=== PATIENT | female | born 1995 | race Caucasian/White ===

== ENCOUNTER → 2016-09-10 | Outpatient (CLI) | payer BC, MEDICAID | LOC: MW.CHOBGYN 08:33 | PROVIDERS: ATTEND Obstetrics & Gynecology | DX: Z34.90 Encounter for supervision of normal pregnancy, unspecified, unspecified trimester (principal) | CPT/HCPCS: 81003 ==

== ENCOUNTER → 2016-09-24 | Outpatient (CLI) | payer BC, MEDICAID | LOC: MW.CHOBGYN 09:23 | PROVIDERS: ATTEND Obstetrics & Gynecology | DX: Z34.90 Encounter for supervision of normal pregnancy, unspecified, unspecified trimester (principal) | CPT/HCPCS: 87081 ==

== ENCOUNTER → 2016-10-28 | Outpatient (CLI) | payer BC, MEDICAID | LOC: MW.CHOBGYN 10:48 | PROVIDERS: ATTEND Obstetrics & Gynecology | DX: Z34.90 Encounter for supervision of normal pregnancy, unspecified, unspecified trimester (principal) | CPT/HCPCS: 81003 ==

== ENCOUNTER 2016-10-31 00:09 | Inpatient (IN) | payer BC, MEDICAID ==
[2016-10-31] MEDS ORDERED: Butorphanol 1 MG/ML SDV IVPUSH PRN (00:25)
[2016-10-31] MEDS ORDERED: Misoprostol 200 MCG Tab PO PRN (00:25)
[2016-10-31] MEDS ORDERED: Terbutaline 1 MG/ML SDV SUBCUT PRN (00:25)
[2016-10-31] MEDS ORDERED: Carboprost Tromethamine 250 MCG/1 ML Amp IM PRN (00:25)
[2016-10-31] MEDS ORDERED: Water For Irrigation,Sterile 1,000 ML Container IRR PRN (00:25)
[2016-10-31] MEDS ORDERED: Methylergonovine 0.2 MG/1 ML Amp IM PRN (00:25)
[2016-10-31] MEDS ORDERED: Sodium Chloride 0.9% 10 ML Syringe FLUSH PRN (00:25)
[2016-10-31] MEDS ORDERED: Sodium Chloride 0.9% 2.5 ML Syringe FLUSH PRN (00:25)
[2016-10-31] MEDS ORDERED: Nalbuphine 10 MG/1 ML Vial IVPUSH PRN (00:25)
[2016-10-31] MEDS ORDERED: Lidocaine 1% 50 ML MDV INJECT PRN (00:25)
[2016-10-31] MEDS ORDERED: Oxytocin/Lactated Ringers 30 UNIT/500 ML BAG IV SCH ×3 (00:30→06:00)
[2016-10-31] MEDS ORDERED: Misoprostol 25 MCG (1/4 of 100 MCG) Tab PO SCH (00:45)
[2016-10-31] MEDS ORDERED: Misoprostol 25 MCG (1/4 of 100 MCG) Tab VAG SCH (00:45)
[2016-10-31] MEDS ORDERED: Acetaminophen 500 MG Tab PO ONE (01:47)
[2016-10-31] MEDS ORDERED: Misoprostol 25 MCG (1/4 of 100 MCG) Tab VAG PRN (05:30)
[2016-10-31] MEDS ORDERED: Misoprostol 25 MCG (1/4 of 100 MCG) Tab PO PRN (05:30)
--- NOTE | 2016-10-31 07:40 | PCM.LDHP ---
L&D History of Present Illness - General Date of Service: 10/31/16 Admit Problem/Dx: Patient Status Order with Admit Dx/Problem 10/31/16 00:25 Patient Status [ADT] Routine Admission Diagnosis/Problem Admission Diagnosis/Problem 10/31/16 07:35 21 yo for IOL due to post dates. EDC 10/26/2016 40 5/7 wks, O+, RI, GBS neg. Source of Information: Patient History Limitations: Reports: No limitations - History of Present Illness Improves with: Reports: None Worsens with: Reports: None Associated Symptoms: Reports: N - Related Data Allergies/Adverse Reactions: Allergies Allergy/AdvReac Type Severity Reaction Status Date / Time No Known Allergies Allergy Verified 10/31/16 00:24 Past Medical History - Past Health History Medical/Surgical History: Denies Medical/Surgical History Social & Family History - Family History Cardiac: Reports: None GI: Reports: Other (see below) Other GI Family History: Grandmother had gastric by-pass Endocrine/Metabolic: Reports: Diabetes, type II, Obesity/MBI 30+ Oncologic: Reports: Prostate - Tobacco Use Smoking Status *Q: Current Every Day Smoker Years of Tobacco use: 7 Packs/Tins Daily: 2 Second Hand Smoke Exposure: Yes - Caffeine Use Caffeine Use: Reports: Soda - Recreational Drug Use Recreational Drug Use: Yes Drug Use in Last 12 Months: Yes Recreational Drug Type: Reports: Marijuana/Hashish Other Recreational Drug Type: Use to use it daily but started cutting back until now she hasn't used it for about 3 months Recreational Drug Use Frequency: Not Used In Over 2 Months H&P Review of Systems - Review of Systems: Review Of Systems: See Below General: Reports: no symptoms HEENT: Reports: no symptoms Pulmonary: Reports: No Symptoms Cardiovascular: Reports: no symptoms Gastrointestinal: Reports: No symptoms Genitourinary: Reports: no symptoms Musculoskeletal: Reports: no symptoms Skin: Reports: no symptoms Psychiatric: Reports: no symptoms Neurological: Reports: No Symptoms Hematologic/Lymphatic: Reports: no symptoms Immunologic: Reports: no symptoms L&D Exam - Exam Exam: See Below - Vital Signs Vital Signs: Last Vital Signs Temp 37.6 C 10/31/16 02:00 Pulse Resp BP Pulse Ox Weight: 122.47 kg - Exam General: alert, oriented, cooperative HEENT: Hearing intact Lungs: Normal respiratory effort Abdomen: soft (gravid) Rectal Exam: Deferred Back Exam: full range of motion Extremities: normal inspection Skin: warm, dry, intact Neurological: cranial nerves intact Psychiatric: alert, normal affect, normal mood - Patient Data Lab Results last 24 hrs: Laboratory Results - last 24 hr 10/31/16 10/31/16 Range/Units 00:40 00:40 WBC 12.30 H (4.0-11.0) K/uL RBC 4.40 (4.30-5.90) M/uL Hgb 13.4 (12.0-16.0) g/dL Hct 39.3 (36.0-46.0) % MCV 89.3 (80.0-98.0) fL MCH 30.5 (27.0-32.0) pg MCHC 34.1 (31.0-37.0) g/dL RDW Std Deviation 43.7 (28.0-62.0) fl RDW Coeff of Kavon 13 (11.0-15.0) % Plt Count 234 (150-400) K/uL MPV 9.50 (7.40-12.00) fL Nucleated RBC % 0.0 /100WBC Nucleated RBCs # 0 K/uL Blood Type O POSITIVE Antibody Screen NEGATIVE Result Diagrams: 10/31/16 00:40 - Problem List (1) Supervision of normal IUP (intrauterine ) in primigravida SNOMED Code(s): 78459669, 860318516, 601439943, 554076535 ICD Code: Z34.00 - ENCNTR FOR SUPRVSN OF NORMAL FIRST , UNSP TRIMESTER Status: Acute Priority: High Current Visit: Yes Qualifiers: Trimester: third trimester Qualified Code(s): Z34.03 - Encounter for supervision of normal first , third trimester Problem List Initiated/Reviewed/Updated: Yes Orders Last 24hrs: Active Orders 24 hr Category Date Time Status Patient Status [ADT] Routine ADT 10/31/16 00:25 Active Bedrest Bathroom Privileges [RC] ASDIRECTED Care 10/31/16 00:25 Active Communication Order [RC] ASDIRECTED Care 10/31/16 00:25 Active Communication Order [RC] ASDIRECTED Care 10/31/16 00:25 Active Communication Order [RC] ASDIRECTED Care 10/31/16 00:25 Active Heart Tones [RC] CONTINUOUS Care 10/31/16 00:25 Active Non Stress Test [RC] PER UNIT ROUTINE Care 10/31/16 00:25 Active May Shower [RC] ASDIRECTED Care 10/31/16 00:25 Active Notify Provider [RC] PRN Care 10/31/16 00:25 Active Notify Provider [RC] PRN Care 10/31/16 00:25 Active Notify Provider [RC] PRN Care 10/31/16 00:25 Active Notify Provider [RC] STAT Care 10/31/16 00:25 Active Oxygen Therapy [RC] ASDIRECTED Care 10/31/16 00:25 Active Up ad Janine [RC] ASDIRECTED Care 10/31/16 00:25 Active Vaginal Exam [RC] PRN Care 10/31/16 00:25 Active Vaginal Exam [RC] PRN Care 10/31/16 00:25 Active Vital Signs [RC] PER UNIT ROUTINE Care 10/31/16 00:25 Active Vital Signs [RC] PER UNIT ROUTINE Care 10/31/16 00:25 Active Clear Liquid Diet [DIET] Diet 10/31/16 Breakfast Active Butorphanol [Stadol] Med 10/31/16 00:25 Active 1 mg IVPUSH ASDIRECTED PRN Carboprost Tromethamine [Hemabate DS] Med 10/31/16 00:25 Active 250 mcg IM ASDIRECTED PRN Lactated Ringers [Ringers, Lactated] 1,000 ml Med 10/31/16 00:30 Active IV ASDIRECTED Lidocaine 1% [Xylocaine 1%] Med 10/31/16 00:25 Active 50 ml INJECT .ONCE PRN Methylergonovine [Methergine] Med 10/31/16 00:25 Active 0.2 mg IM ASDIRECTED PRN Misoprostol [Cytotec] Med 10/31/16 00:25 Active 200 mcg PO .ONCE PRN Misoprostol [Cytotec] Med 10/31/16 00:45 Active 25 mcg PO .ONCE Misoprostol [Cytotec] Med 10/31/16 05:30 Active 25 mcg PO Q4H PRN Misoprostol [Cytotec] Med 10/31/16 00:45 Active 25 mcg VAG .ONCE Misoprostol [Cytotec] Med 10/31/16 05:30 Active 25 mcg VAG Q4H PRN Nalbuphine [Nubain] Med 10/31/16 00:25 Active 10 mg IVPUSH ASDIRECTED PRN Oxytocin/Lactated Ringers [Pitocin in LR 30 Units/500 Med 10/31/16 03:00 Active ML] 30 unit in 500 ml IV TITRATE Sodium Chloride 0.9% [Saline Flush] Med 10/31/16 00:25 Active 10 ml FLUSH ASDIRECTED PRN Sodium Chloride 0.9% [Saline Flush] Med 10/31/16 00:25 Active 2.5 ml FLUSH ASDIRECTED PRN Terbutaline [Brethine] Med 10/31/16 00:25 Active 0.25 mg SUBCUT ASDIRECTED PRN Water For Irrigation,Sterile [Sterile Water for Med 10/31/16 00:25 Active Irrigation] 1,000 ml IRR ASDIRECTED PRN Scalp Electrode [WOMSER] Per Unit Routine Oth 10/31/16 00:25 Ordered Medication Administration Instruction [OM.PC] Q3H Oth 10/31/16 00:30 Ordered Peripheral IV Insertion Adult [OM.PC] Routine Oth 10/31/16 00:25 Ordered Resuscitation Status Routine Resus Stat 10/31/16 00:25 Ordered Medication Orders Butorphanol Tartrate (Stadol) 1 mg IVPUSH ASDIRECTED PRN PRN Reason: Pain Stop: 11/01/16 00:26 Carboprost Tromethamine (Hemabate Ds) 250 mcg IM ASDIRECTED PRN PRN Reason: Post Hemorrhage Lactated Ringer's (Ringers, Lactated) 1,000 mls @ 150 mls/hr IV ASDIRECTED MARCUS Oxytocin/Lactated Ringer's (Pitocin In Lr 30 Units/500 Ml) 30 unit in 500 mls @ 2 mls/hr IV TITRATE MARCUS; 2 MUNITS/MIN PRN Reason: Protocol Last Titration: 10/31/16 03:53 Dose: 4 munits/min, 4 mls/hr Admin: 10/31/16 03:00 Dose: 2 munits/min, 2 mls/hr Lidocaine HCl (Xylocaine 1%) 50 ml INJECT .ONCE PRN PRN Reason: Laceration repair Methylergonovine Maleate (Methergine) 0.2 mg IM ASDIRECTED PRN PRN Reason: Post Hemorrhage Misoprostol (Cytotec) 200 mcg PO .ONCE PRN PRN Reason: Post Hemorrhage Misoprostol (Cytotec) 25 mcg VAG .ONCE MARCUS Misoprostol (Cytotec) 25 mcg VAG Q4H PRN PRN Reason: Cervical Ripening Stop: 11/01/16 09:31 Misoprostol (Cytotec) 25 mcg PO .ONCE MARCUS Misoprostol (Cytotec) 25 mcg PO Q4H PRN PRN Reason: Cervical Ripening Stop: 11/01/16 09:31 Nalbuphine HCl (Nubain) 10 mg IVPUSH ASDIRECTED PRN PRN Reason: Pain (severe 7-10) Stop: 11/02/16 00:26 Sodium Chloride (Saline Flush) 10 ml FLUSH ASDIRECTED PRN PRN Reason: Keep Vein Open Sodium Chloride (Saline Flush) 2.5 ml FLUSH ASDIRECTED PRN PRN Reason: Keep Vein Open Sterile Water (Sterile Water For Irrigation) 1,000 ml IRR ASDIRECTED PRN PRN Reason: delivery Terbutaline Sulfate (Brethine) 0.25 mg SUBCUT ASDIRECTED PRN PRN Reason: Tacysystole Assessment/Plan Comment:: IOL A: 21 yo for IOL due to post dates. EDC 10/26/2016 40 5/7 wks, O+, RI, GBS neg. P: Admitted to L&D for IOL, GBS neg, pitocin low dose 4ml for cervical ripening due to tachycardia of ., epidural prn. Anticipate
[2016-10-31] MEDS: Lactated Ringers 1,000 ML IV SCH ×2 (09:54→10:36)
--- NOTE | 2016-10-31 10:28 | PCM.PREANE ---
Preanesthetic Assessment - Anesthesia/Transfusion/Family Hx Anesthesia History: No Prior Anesthesia - Review of Systems General: No Symptoms Pulmonary: No Symptoms Cardiovascular: No Symptoms Gastrointestinal: No symptoms Neurological: No Symptoms Other: Reports: None - Physical Assessment Pulse: 86 O2 Sat by Pulse Oximetry: 99 Respiratory Rate: 20 Temperature: 99.6 F Vital Signs: Last Vital Signs Temp 99.6 F 10/31/16 02:00 Pulse Resp BP Pulse Ox Height: 5 ft 4 in Weight: 122.47 kg ASA Class: 3 Mental Status: Alert & Oriented x3 Airway Class: Mallampati = 2 Dentition: Reports: Normal Dentition Thyro-Mental Finger Breadths: 3 Mouth Opening Finger Breadths: 3 ROM/Head Extension: Full Lungs: Clear to auscultation, Normal respiratory effort Cardiovascular: Regular Rate, Regular Rhythm - Lab Values: Laboratory Last Values WBC 12.30 K/uL (4.0-11.0) H 10/31/16 00:40 RBC 4.40 M/uL (4.30-5.90) 10/31/16 00:40 Hgb 13.4 g/dL (12.0-16.0) 10/31/16 00:40 Hct 39.3 % (36.0-46.0) 10/31/16 00:40 MCV 89.3 fL (80.0-98.0) 10/31/16 00:40 MCH 30.5 pg (27.0-32.0) 10/31/16 00:40 MCHC 34.1 g/dL (31.0-37.0) 10/31/16 00:40 RDW Std Deviation 43.7 fl (28.0-62.0) 10/31/16 00:40 RDW Coeff of Kavon 13 % (11.0-15.0) 10/31/16 00:40 Plt Count 234 K/uL (150-400) 10/31/16 00:40 MPV 9.50 fL (7.40-12.00) 10/31/16 00:40 Nucleated RBC % 0.0 /100WBC 10/31/16 00:40 Nucleated RBCs # 0 K/uL 10/31/16 00:40 Blood Type O POSITIVE 10/31/16 00:40 Antibody Screen NEGATIVE 10/31/16 00:40 - Allergies Allergies/Adverse Reactions: Allergies Allergy/AdvReac Type Severity Reaction Status Date / Time No Known Allergies Allergy Verified 10/31/16 00:24 - Acknowledgements Anesthesia Type Planned: Epidural Pt an Appropriate Candidate for the Planned Anesthesia: Yes Alternatives and Risks of Anesthesia Discussed w Pt/Guardian: Yes Pt/Guardian Understands and Agrees with Anesthesia Plan: Yes PreAnesthesia Questionnaire - Past Health History Medical/Surgical History: Denies Medical/Surgical History HEENT History: Reports: None Cardiovascular History: Reports: None Respiratory History: Reports: None Gastrointestinal History: Reports: GERD Genitourinary History: Reports: None [employer] History: Reports: : 1 Para: 0 LMP (Approximate): Musculoskeletal History: Reports: None Neurological History: Reports: None Psychiatric History: Reports: None Endocrine/Metabolic History: Reports: Obesity/BMI 30+ (Morbid obesity) Hematologic History: Reports: None Immunologic History: Reports: None Oncologic (Cancer) History: Reports: None Dermatologic History: Reports: None - Infectious Disease History Infectious Disease History: Reports: None - SUBSTANCE USE Smoking Status *Q: Current Every Day Smoker Tobacco Use Within Last Twelve Months: Cigarettes Second Hand Smoke Exposure: Yes Recreational Drug Use History: Yes Recreational Drug Type: Reports: Marijuana/Hashish - CURRENT (IN HOUSE) MEDS Current Meds: Current Medications Butorphanol Tartrate (Stadol) 1 mg IVPUSH ASDIRECTED PRN PRN Reason: Pain Stop: 11/01/16 00:26 Last Admin: 10/31/16 08:47 Dose: 1 mg Carboprost Tromethamine (Hemabate Ds) 250 mcg IM ASDIRECTED PRN PRN Reason: Post Hemorrhage Lactated Ringer's (Ringers, Lactated) 1,000 mls @ 150 mls/hr IV ASDIRECTED MARCUS Last Admin: 10/31/16 09:54 Dose: 999 mls/hr Oxytocin/Lactated Ringer's (Pitocin In Lr 30 Units/500 Ml) 30 unit in 500 mls @ 2 mls/hr IV TITRATE MARCUS; 2 MUNITS/MIN PRN Reason: Protocol Last Titration: 10/31/16 03:53 Dose: 4 munits/min, 4 mls/hr Lidocaine HCl (Xylocaine 1%) 50 ml INJECT .ONCE PRN PRN Reason: Laceration repair Methylergonovine Maleate (Methergine) 0.2 mg IM ASDIRECTED PRN PRN Reason: Post Hemorrhage Misoprostol (Cytotec) 200 mcg PO .ONCE PRN PRN Reason: Post Hemorrhage Misoprostol (Cytotec) 25 mcg VAG .ONCE MARCUS Misoprostol (Cytotec) 25 mcg VAG Q4H PRN PRN Reason: Cervical Ripening Stop: 11/01/16 09:31 Misoprostol (Cytotec) 25 mcg PO .ONCE MARCUS Misoprostol (Cytotec) 25 mcg PO Q4H PRN PRN Reason: Cervical Ripening Stop: 11/01/16 09:31 Nalbuphine HCl (Nubain) 10 mg IVPUSH ASDIRECTED PRN PRN Reason: Pain (severe 7-10) Stop: 11/02/16 00:26 Sodium Chloride (Saline Flush) 10 ml FLUSH ASDIRECTED PRN PRN Reason: Keep Vein Open Sodium Chloride (Saline Flush) 2.5 ml FLUSH ASDIRECTED PRN PRN Reason: Keep Vein Open Sterile Water (Sterile Water For Irrigation) 1,000 ml IRR ASDIRECTED PRN PRN Reason: delivery Terbutaline Sulfate (Brethine) 0.25 mg SUBCUT ASDIRECTED PRN PRN Reason: Tacysystole Discontinued Medications Acetaminophen (Tylenol Extra Strength) 1,000 mg PO ONETIME ONE Stop: 10/31/16 01:48 Last Admin: 10/31/16 02:00 Dose: 1,000 mg Oxytocin/Lactated Ringer's (Pitocin In Lr 30 Units/500 Ml) 30 unit in 500 mls @ 500 mls/hr IV TITRATE MARCUS PRN Reason: 500 MUNITS/MIN Stop: 10/31/16 01:29 Oxytocin/Lactated Ringer's (Pitocin In Lr 30 Units/500 Ml) 30 unit in 500 mls @ 2 mls/hr IV TITRATE MARCUS; 2 MUNITS/MIN PRN Reason: Protocol
[2016-10-31] MEDS ORDERED: Ropivacaine HCl/PF 100 ML ONE (10:30)
[2016-10-31] MEDS ORDERED: fentaNYL 100 MCG/2 ML SDV ONE (10:30)
[2016-10-31] MEDS ORDERED: Ibuprofen 400 MG Tab PO PRN (14:20)
[2016-10-31] MEDS ORDERED: Acetaminophen 500 MG Tab PO PRN (14:20)
[2016-10-31] MEDS ORDERED: Witch Hazel Medicated Pads 40/Jar TOP PRN (14:20)
[2016-10-31] MEDS ORDERED: Ibuprofen 800 MG Tab PO PRN (14:20)
[2016-10-31] MEDS ORDERED: Lanolin 100% Cream 7 GM Tube TOP PRN (14:20)
[2016-10-31] MEDS ORDERED: Docusate Sodium 100 MG Cap PO PRN (14:20)
[2016-10-31] MEDS ORDERED: Bisacodyl 10 MG Supp RECTAL PRN (14:20)
[2016-10-31] MEDS ORDERED: oxyCODONE 5 MG Tab PO PRN (14:20)
[2016-10-31] MEDS ORDERED: Benzocaine/Menthol 20%-0.5% Spray 78 GM Cannister TOP PRN (14:20)
--- NOTE | 2016-10-31 16:32 | OR ---
SURGEON: Ric Garibay MD DATE OF PROCEDURE: DELIVERY NOTE: Ms. Skaggs is 21-year-old, primigravida. She is term. She is followed in the office primarily by me. She is admitted in active labor. At the time of the admission, she was 3 to 4 cm, complete vertex. She had an artificial rupture of the membrane by the salad bar clerk and it was a clear fluid. The patient required small dose of Pitocin, however, the heart rate was between category 1 and category 2 and she did not tolerate the Pitocin, so we discontinued the Pitocin. The patient continued to progress. She became complete, complete 0 to +1, and she had a deep decelerations. I was called to assess the patient. The patient was complete, complete vertex, and 0 to +1. She was in LOT position. I felt that the patient is vacuumable and my estimated weight for the baby is under 8 pounds, so I used a Kiwi forceps, and while the patient pushing and grunting we gently guided the fetus head is down and it is rotated to the OA position and then she was able to deliver vaginally without any problem. score reported to be 8 and 9 and the weight [address] Benjamin, the rehabilitation counsellor has attended the delivery. I had to do a midline episiotomy to aid in the delivery of this child. The placenta delivered spontaneous, complete, and intact without any problem and then the episiotomy was repaired with 3-0 Vicryl and the layer without any problem. Estimated blood loss is 350 mL to 400 mL. During this there was no complication. CHAR / MARIXA /[id number]
--- NOTE | 2016-10-31 19:30 | PCM48HPAN ---
Post Anesthesia Note - EVALUATION WITHIN 48HRS OF ANESTHETIC Vital Signs in Normal Range: Yes Patient Participated in Evaluation: Yes Respiratory Function Stable: Yes Airway Patent: Yes Cardiovascular Function Stable: Yes Hydration Status Stable: Yes Pain Control Satisfactory: Yes Nausea and Vomiting Control Satisfactory: Yes Mental Status Recovered: Yes
[2016-10-31] MEDS: Acetaminophen 500 MG Tab PO PRN (19:54)
--- NOTE | 2016-11-01 05:46 | PCM.DCSUM1 ---
Discharge Summary - Hospital Course Free Text/Narrative:: Discharge home with . Follow up 6 weeks or sooner if needed. - Discharge Data Discharge Date: 11/01/16 Discharge Disposition: Home, Self-Care 01 Condition: Good - Discharge Diagnosis/Problem(s) (1) Supervision of normal IUP (intrauterine ) in primigravida SNOMED Code(s): 20246569, 886075247, 325835392, 767018124 ICD Code: Z34.00 - ENCNTR FOR SUPRVSN OF NORMAL FIRST , UNSP TRIMESTER Status: Acute Priority: High Current Visit: Yes Qualifiers: Trimester: third trimester Qualified Code(s): Z34.03 - Encounter for supervision of normal first , third trimester - Patient Instructions Diet: Usual Diet as Tolerated Activity: As Tolerated, Rest and Relax Today Driving: Do Not Drive Showering/Bathing: May Shower Notify Provider of: Fever, Increased Pain, Swelling and Redness, Drainage, Nausea and/or Vomiting - Discharge Plan Referrals: [facility] [Outside] Ric Garibay MD [Physician] - 12/06/16 1:30 pm - General Info Date of Service: 11/01/16 Functional Status: Reports: pain controlled, tolerating diet, ambulating, urinating - Review of Systems General: Reports: No Symptoms HEENT: Reports: no symptoms Pulmonary: Reports: no symptoms Cardiovascular: Reports: No Symptoms Gastrointestinal: Reports: No symptoms Genitourinary: Reports: no symptoms Musculoskeletal: Reports: no symptoms Skin: Reports: no symptoms Neurological: Reports: No Symptoms Psychiatric: Reports: no symptoms - Patient Data Vitals - Most Recent: Last Vital Signs Temp 36.8 C 11/01/16 03:47 Pulse 97 11/01/16 03:47 Resp 17 11/01/16 03:47 BP 107/58 L 11/01/16 03:47 Pulse Ox 97 11/01/16 03:47 Weight - Most Recent: 122.47 kg Lab Results - Last 24 hrs: Laboratory Results - last 24 hr 11/01/16 Range/Units 04:52 Hgb 12.2 (12.0-16.0) g/dL Hct 37.1 (36.0-46.0) % Med Orders - Current: Current Medications Acetaminophen (Tylenol Extra Strength) 500 mg PO Q4H PRN PRN Reason: Pain Acetaminophen (Tylenol Extra Strength) 1,000 mg PO Q4H PRN PRN Reason: Pain Last Admin: 10/31/16 19:54 Dose: 1,000 mg Benzocaine/Menthol (Dermoplast Pain Relief 20%-0.5% [place]) 78 gm TOP ASDIRECTED PRN PRN Reason: Perineal Comfort Measure Bisacodyl (Dulcolax) 10 mg RECTAL .ONCE PRN PRN Reason: Constipation Docusate Sodium (Colace) 100 mg PO BID PRN PRN Reason: Constipation Emollient Ointment (Lansinoh Hpa) 0 gm TOP ASDIRECTED PRN PRN Reason: Sore Nipples Ibuprofen (Motrin) 400 mg PO Q4H PRN PRN Reason: Pain Ibuprofen (Motrin) 800 mg PO Q6H PRN PRN Reason: Pain Last Admin: 10/31/16 16:58 Dose: 800 mg Oxycodone HCl (Oxycodone) 5 mg PO Q2H PRN PRN Reason: Pain Last Admin: 10/31/16 19:57 Dose: 5 mg Witch Denisse (Tucks) 1 pad TOP ASDIRECTED PRN PRN Reason: comfort care Discontinued Medications Acetaminophen (Tylenol Extra Strength) 1,000 mg PO ONETIME ONE Stop: 10/31/16 01:48 Last Admin: 10/31/16 02:00 Dose: 1,000 mg Butorphanol Tartrate (Stadol) 1 mg IVPUSH ASDIRECTED PRN PRN Reason: Pain Stop: 11/01/16 00:26 Last Admin: 10/31/16 08:47 Dose: 1 mg Carboprost Tromethamine (Hemabate Ds) 250 mcg IM ASDIRECTED PRN PRN Reason: Post Hemorrhage Fentanyl (Sublimaze) Confirm Administered Dose 100 mcg .ROUTE .STK-MED ONE Stop: 10/31/16 10:31 Lactated Ringer's (Ringers, Lactated) 1,000 mls @ 150 mls/hr IV ASDIRECTED MARCUS Last Admin: 10/31/16 10:36 Dose: 999 mls/hr Oxytocin/Lactated Ringer's (Pitocin In Lr 30 Units/500 Ml) 30 unit in 500 mls @ 500 mls/hr IV TITRATE MARCUS PRN Reason: 500 MUNITS/MIN Stop: 10/31/16 01:29 Oxytocin/Lactated Ringer's (Pitocin In Lr 30 Units/500 Ml) 30 unit in 500 mls @ 2 mls/hr IV TITRATE MARCUS; 2 MUNITS/MIN PRN Reason: Protocol Oxytocin/Lactated Ringer's (Pitocin In Lr 30 Units/500 Ml) 30 unit in 500 mls @ 2 mls/hr IV TITRATE MARCUS; 2 MUNITS/MIN PRN Reason: Protocol Last Titration: 10/31/16 03:53 Dose: 4 munits/min, 4 mls/hr Ropivacaine (Naropin 0.2%) Confirm Administered Dose 100 mls @ as directed .ROUTE .[facility]-MED ONE Stop: 10/31/16 10:31 Lidocaine HCl (Xylocaine 1%) 50 ml INJECT .ONCE PRN PRN Reason: Laceration repair Methylergonovine Maleate (Methergine) 0.2 mg IM ASDIRECTED PRN PRN Reason: Post Hemorrhage Misoprostol (Cytotec) 200 mcg PO .ONCE PRN PRN Reason: Post Hemorrhage Misoprostol (Cytotec) 25 mcg VAG .ONCE MARCUS Misoprostol (Cytotec) 25 mcg VAG Q4H PRN PRN Reason: Cervical Ripening Stop: 11/01/16 09:31 Misoprostol (Cytotec) 25 mcg PO .ONCE MARCUS Misoprostol (Cytotec) 25 mcg PO Q4H PRN PRN Reason: Cervical Ripening Stop: 11/01/16 09:31 Nalbuphine HCl (Nubain) 10 mg IVPUSH ASDIRECTED PRN PRN Reason: Pain (severe 7-10) Stop: 11/02/16 00:26 Sodium Chloride (Saline Flush) 10 ml FLUSH ASDIRECTED PRN PRN Reason: Keep Vein Open Sodium Chloride (Saline Flush) 2.5 ml FLUSH ASDIRECTED PRN PRN Reason: Keep Vein Open Sterile Water (Sterile Water For Irrigation) 1,000 ml IRR ASDIRECTED PRN PRN Reason: delivery Terbutaline Sulfate (Brethine) 0.25 mg SUBCUT ASDIRECTED PRN PRN Reason: Tacysystole - Exam General: Reports: alert, oriented, cooperative, no acute distress Lungs: Reports: Normal respiratory effort Abdomen: Reports: soft, no tenderness, no distension (Female) Exam: Vaginal bleeding Rectal (Female) Exam: Deferred Back Exam: Reports: full range of motion Extremities: Reports: no edema, normal pulses Skin: Reports: warm, dry, intact Wound/Incisions: Reports: healing well Neurological: Reports: no new focal deficit Psy/Mental Status: Reports: alert, normal affect, normal mood *Q Meaningful Use (DIS) - VTE *Q VTE Criteria *Q: - Stroke *Q Stroke Criteria *Q: - AMI *Q AMI Criteria *Q:
[2016-11-01] MEDS: Acetaminophen 500 MG Tab PO PRN (06:32)
[2016-11-01 14:18] VITALS: BP 115/62
== END 2016-11-01 16:40 | disposition home or self-care (01) | DRG 560 ==
LOC: MW.OBCHECK 00:09 → MW.OB 00:13 → MW.OBCHECK 00:25 → MW.OB 00:25 → OBSVTOIN 13:42 → MW.OB 18:25
PROVIDERS: ADMIT Obstetrics & Gynecology; ATTEND Advanced Practice Midwife
PROC: 10D07Z3 Extraction of Products of Conception, Low Forceps, Via Natural or Artificial Opening (ICD-10-PCS; principal; 2016-10-31)
PROC: 10907ZC Drainage of Amniotic Fluid, Therapeutic from Products of Conception, Via Natural or Artificial Opening (ICD-10-PCS; 2016-10-31)
PROC: 00HU33Z Insertion of Infusion Device into Spinal Canal, Percutaneous Approach (ICD-10-PCS; 2016-10-31)
PROC: 3E0R3CZ (ICD-10-PCS; 2016-10-31)
PROC: 3E033VJ Introduction of Other Hormone into Peripheral Vein, Percutaneous Approach (ICD-10-PCS; 2016-10-31)
PROC: 10907ZC Drainage of Amniotic Fluid, Therapeutic from Products of Conception, Via Natural or Artificial Opening (ICD-10-PCS; 2016-10-31)
DX: O48.0 Post-term pregnancy (principal); O70.9 Perineal laceration during delivery, unspecified; Z3A.41 41 weeks gestation of pregnancy; Z37.0 Single live birth; O99.334 Smoking (tobacco) complicating childbirth; O99.324 Drug use complicating childbirth; F12.90 Cannabis use, unspecified, uncomplicated
CPT/HCPCS: 01967; 36415; 59025; 85014; 85018; 85027; 86850; 86900; 86901; A9270-GY; J0595; J2795; J3010; J7120